=== PATIENT | female | born 2000 | race Caucasian/White ===

== ENCOUNTER 2020-08-26 22:52 | Emergency (ER) | payer BC, OTHER ==
[2020-08-26 23:00] LABS: Glucose,Whole Blood 93 mg/dL (75-99)
[2020-08-26] MEDS ORDERED: SODIUM CHLORIDE 0.9% 1,000 ML IV STA ×2 (23:04)
[2020-08-26] MEDS ORDERED: LORazepam 2 MG/ML INJ IV STA (23:09)
[2020-08-26] MEDS ORDERED: MORPHINE SULFATE 4 MG/ML SYRINGE IVP STA (23:09)
[2020-08-26] MEDS ORDERED: DIPH,PERTUS(ACELL)TETVAC-LF 0.5 ML VIAL IM ONE (23:14)
[2020-08-26 23:24] LABS: Basophils # (A) 0.1 k/uL (0-0.2); Basophils % (A) 1 %; Eosinophils # (A) 0.2 k/uL (0-0.7); Eosinophils % (A) 2 %; HCT 38.2 % (34.0-46.0); HGB 12.9 gm/dL (11.4-16.0); Lymphocytes # (A) 4.2 k/uL (1.0-4.8); Lymphocytes % (A) 42 %; MCH 30.5 pg (25.0-35.0); MCHC 33.6 g/dL (31.0-37.0); MCV 90.6 fL (80.0-100.0); Mean Platelet Volume 6.4; Monocytes # (A) 0.4 k/uL (0-1.0); Monocytes % (A) 4 %; Neutrophils % (A) 49 %; Platelet Count 440 k/uL (150-450); RBC 4.22 m/uL (3.80-5.40); RDW 12.6 % (11.5-15.5); WBC 10.1 k/uL (3.8-10.6)
[2020-08-26 23:34] LABS: INR 0.9 (<1.2); Partial Thromboplastin Time 22.1 sec (22.0-30.0); Prothrombin Time 10.1 sec (9.0-12.0)
[2020-08-26 23:35] LABS: ALT 21 U/L (4-34); AST 37 U/L (14-36); African American GFR (CKD) >90 (>60 ml/min/1.73 sqM); Albumin 4.6 g/dL (3.5-5.0); Alcohol <10 mg/dL; Alkaline Phosphatase 83 U/L (38-126); Anion Gap 9 mmol/L; Blood Urea Nitrogen 7 mg/dL (7-17); Calcium 9.4 mg/dL (8.4-10.2); Carbon Dioxide 24 mmol/L (22-30); Chloride 106 mmol/L (98-107); Creatine Kinase 84 U/L (30-135); Glucose 95 mg/dL (74-99); Non-African American GFR(CKD) >90 (>60 ml/min/1.73 sqM); Potassium 4.1 mmol/L (3.5-5.1); Sodium 139 mmol/L (137-145); Total Bilirubin 0.4 mg/dL (0.2-1.3); Total Protein 7.4 g/dL (6.3-8.2)
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
[2020-08-27] MEDS ORDERED: KETOROLAC 15 MG/ML 1 ML VIAL IVP STA (01:45)
[2020-08-27] MEDS ORDERED: HYDROmorphone 1 MG/ML 1 ML SYRINGE IVP STA (01:45)
[2020-08-27] MEDS ORDERED: traMADol 50 MG STARTER PACK 3 TAB BTL PO STA (02:38)
== END 2020-08-27 03:00 | disposition home or self-care (01) ==
LOC: EC 22:52
DX: S02.2XXA Fracture of nasal bones, initial encounter for closed fracture (principal); S01.21XA Laceration without foreign body of nose, initial encounter; F43.20 Adjustment disorder, unspecified; Z23 Encounter for immunization; Z88.5 Allergy status to narcotic agent; V43.62XA Car passenger injured in collision with other type car in traffic accident, initial encounter; Y92.410 Unspecified street and highway as the place of occurrence of the external cause
CPT/HCPCS: 36415; 93005; 86900; 86901; 80053; 82550; 83605; 84484; 85025; 85610; 85730; 86850; 80320; 73562; 72170; 73110; 71045; 72125; 70486; 70450; 71260; 74177; 90715; 99285; 90471; 96374; 96375 ×3; 96361 ×3; 12011; J2060; J2270; J1170; J1885; Q9967